=== PATIENT | male | born 1960 | race African-American/Black ===

== ENCOUNTER 2017-02-26 09:30 | Emergency (ER) | payer OTHER, MEDICAID ==
[~2017-02-26] VITALS: Ht 182.9 cm; Wt 124.0 kg
[2017-02-26 09:34] VITALS: Ht 182.9 cm; Wt 124.0 kg
--- NOTE | 2017-02-26 10:41 | RADRPT ---
PROCEDURE: Noncontrast CT Head. CLINICAL INDICATION: Double vision. TECHNIQUE: Noncontrast CT of the head was obtained. The administered radiation dose was CTDI vol = 44.58 mGy, DLP = 720.23 mGy-cm. One or more of the following dose reduction techniques were used: Au tomated exposure control, Adjustment of the mA and/or kV according to patient size, or Use of iterat valerie reconstruction technique. COMPARISON: There are no similar studies submitted for comparison. FINDINGS: The ventricles and sulci are within normal limits. There is no loss of batista-white differentiation to suggest acute territorial infarction. There is no acute intracranial hemorrhage. There is no mass effect. No midline shift is identified. The orbits are within normal limits. There is mild to moderate bilateral ethmoid sinus mucosal thickening. No destructive osseous lesion is identified. IMPRESSION: No acute intracranial hemorrhage. Further findings as detailed above. RPTAT: PP .Jordan Hennessy MD, MD Date Time Electronically viewed and signed by .Jordan Hennessy MD, on 02/26/2017 10:41 .F/
--- NOTE | 2017-02-26 10:45 | RADRPT ---
PROCEDURE: CT orbits noncontrast CLINICAL INDICATION: Double vision. TECHNIQUE: Noncontrast CT of the orbits was obtained. Coronal and sagittal re-formations were provid ed. The administered radiation dose was CTDI 29.27 mGy, DLP 414.25 mGycm. One or more of the follow ing dose reduction techniques were used: Automated exposure control, Adjustment of the mA and/or kV according to patient size, or Use of iterative reconstruction technique. COMPARISON: There are no similar studies submitted for comparison. FINDINGS: Evaluation is limited without intravenous contrast. There is no acute fracture.The bilateral globes are intact.There is no orbital hematoma.The bilatera l optic nerves are normal in size.The bilateral extraocular muscles are within normal limits. No def inite orbital mass is identified. There is minimal bilateral frontal sinus mucosal thickening. There is moderate bilateral ethmoid sin us mucosal thickening. There is mild bilateral maxillary sinus mucosal thickening with small mucous retention cysts/polyps. There is minimal bilateral sphenoid sinus mucosal thickening. Please refer to CT of the head report from the same day. No destructive osseous lesion is identified. IMPRESSION: 1. The bilateral globes are intact. There is no post septal orbital hematoma. 2. No acute fracture. Further findings as detailed above. RPTAT: PP .Jordan Hennessy MD, MD Date Time Electronically viewed and signed by .Jordan Hennessy MD, on 02/26/2017 10:45 .F/
[2017-02-26] MEDS ORDERED: AMOX1TAB10 PO (11:13)
[2017-02-26] MEDS ORDERED: PRED20TA PO (11:13)
--- NOTE | 2017-02-26 11:20 | ERD ---
ER Documentation Chief Complaint Date/Time DATE: 02/26/17 TIME: 11:17 Chief Complaint double vision on rt eye with pain x 3 days , no neuro deficits HPI This 48-year-old male complains of a sensation of double vision for last 3 days. He feels like the most affected eyes his right eye. It started after a sneezing attack and nasal congestion along the middle the night. He has a known allergy to dust. He has some mild nasal congestion but those symptoms have improved. He only notices some mild double vision during extraocular movements. Denies any visual field deficits, discharge. May have some pain behind the right eye as well but it is mild. ROS All systems reviewed and are negative except as per history of present illness. Medications Home Meds Active Scripts Amoxicillin/Potassium Clav (Amox-Clav 875-125 mg Tablet) 875-125 mg Tab, 1 TAB PO BID for 10 Days, #14 TAB Prov:ALLYSSA ORTIZ MD 02/26/17 Prednisone* (Prednisone*) 20 Mg Tab, 40 MG PO DAILY for 4 Days, TAB Prov:ALLYSSA ORTIZ MD 02/26/17 Allergies Allergies: Coded Allergies: No Known Allergies (Verified Allergy, Mild, 02/02/14) PMhx/Soc Medical and Surgical Hx: pt denies Medical Hx, pt denies Surgical Hx History of Surgery: No Anesthesia Reaction: No Hx Neurological Disorder: No Hx Respiratory Disorders: No Hx Cardiac Disorders: No Hx Psychiatric Problems: No Hx Miscellaneous Medical Probl: No Hx Alcohol Use: No Hx Substance Use: No Hx Tobacco Use: No Smoking Status: Never smoker Physical Exam Vitals Vital Signs Date Time Temp Pulse Resp B/P Pulse Ox O2 Delivery O2 Flow Rate FiO2 02/26/17 09:34 98.2 66 18 142/95 98 Physical Exam Const: [], [id number]. Head: Atraumatic Eyes: Normal Conjunctiva and eyelids PERRLA and extraocular movements intact. No appreciable proptosis or abnormal eye movements or deficits.. ENT: Normal External Ears, Nose and Mouth. It was normal. Neck: Full range of motion..~ No meningismus. Resp: Clear to auscultation bilaterally Cardio: Regular rate and rhythm, no murmurs Abd: Soft, non tender, non distended. Normal bowel sounds Skin: No petechiae or rashes Back: No midline or flank tenderness Ext: No cyanosis, or edema Neur: Awake and alert cranial nerves II through XII grossly intact. Psych: Normal Mood and Affect Procedures/MDM Patient presents with sensation of double vision associated with nasal congestion and coughing or sneezing spell. Has normal visual acuity. Concerns for mass lesion or intracranial cause of diplopia CT brain and orbits were performed which shows ethmoid sinusitis, otherwise no acute findings. Patient area, mass lesions, acute neurologic deficit appreciated. His symptoms may be from sinusitis or nonemergent cause. We treated empirically with Augmentin, short course of prednisone, primary care follow-up and ophthalmology referral for persistent symptoms this week. She is otherwise recheck in the ER for new or worsening symptoms as directed and aftercare instructions. Is no evidence to suggest optic neuritis, acute glaucoma, orbital cellulitis, threats to vision currently. Departure Diagnosis: Primary Impression: Eye problem Condition: Stable Patient Instructions: Sinusitis, Abx Tx, Symptoms With Uncertain Cause Referrals: [facility] Hours: Mon - Fri 9:00 AM - 5:00 PM Additional Instructions: CT normal except for signs of sinusitis which could possibly cause symptoms. See [employer] for persistent symptoms this week. Recheck otherwise for new or worsening symptoms. ALLYSSA ORTIZ MD Feb 26, 2017 11:20
== END 2017-02-26 11:27 | disposition home or self-care (01) ==
LOC: FTE 09:30
DX: H53.2 Diplopia (principal)
CPT/HCPCS: 70450; 70480